=== PATIENT | male | born 1960 | race Caucasian/White ===

== ENCOUNTER 2020-03-24 12:31 | Emergency (ER) | payer MEDICARE, MEDICAID ==
[~2020-03-24] VITALS: Ht 175.3 cm; Wt 104.5 kg
[~2020-03-24 12:31] MED LIST: CLIN-26 PO; IBUP-1051 PO; NO HOME MEDS
[2020-03-24 12:47] VITALS: BP 120/94
[2020-03-24] MEDS ORDERED: HYDROcodone/acetaminophen 5mg/325mg tablet PO ONE (14:40)
[2020-03-24 15:48] LABS: CLARITY,URINE CLEAR (Clear); COLOR,URINE YELLOW (Yellow); GLUCOSE, URINE >=1000 mg/dl (Neg); KETONES,URINE 15 mg/dl (Neg); LEUKOCYTE ESTERASE ,URINE NEGATIVE (Neg); NITRITES, URINE NEGATIVE (Neg); OCCULT BLOOD,URINE NEGATIVE (Neg); PROTEIN,URINE NEGATIVE (Neg); UROBILINOGEN,URINE 0.2 E.U/dL (0.2-1.0)
[2020-03-24 15:52] LABS: UA COLLECTION TYPE CLN CATCH MIDSTREAM
[2020-03-24 15:53] LABS: BACTERIA,URINE NONE SEEN /HPF (Neg); MUCUS STRANDS NONE SEEN /LPF (Neg); RBC,URINE 0-2 /HPF (0-2); SQUAMOUS EPITHELIAL CELL,UR FEW /LPF (FEW); WBC,URINE NONE SEEN /HPF (0-4)
[2020-03-24] MEDS ORDERED: LEVO500T2 PO (16:01)
[2020-03-24] MEDS ORDERED: HYDR-3965 PO (16:04)
== END 2020-03-24 16:05 | disposition home or self-care (01) ==
LOC: ER 12:31
DX: N45.1 Epididymitis (principal); N50.3 Cyst of epididymis; N43.3 Hydrocele, unspecified; F17.200 Nicotine dependence, unspecified, uncomplicated; Z79.2 Long term (current) use of antibiotics; Z79.899 Other long term (current) drug therapy
CPT/HCPCS: 81001; 99284

== ENCOUNTER 2020-04-17 11:03 | Day surgery (SDC) | payer MEDICARE, MEDICAID ==
[~2020-04-17 11:03] MED LIST changes: +AMA1T PO; -CLIN-26 PO; +LACT1CAP26 PO; +LINA5TAB4 PO; +LISI-604 PO; +METF-950 PO; -NO HOME MEDS; +[UNRECOGNIZED DRUG - CODE] PO
[2020-04-17] MEDS ORDERED: LIDOcaine 2% 5ml jelly ONE (11:46)
== END 2020-04-17 12:30 | disposition home or self-care (01) ==
LOC: WOUND CARE 11:03
PROVIDERS: ATTEND Nurse Practitioner Family
DX: N49.2 Inflammatory disorders of scrotum (principal); L02.818 Cutaneous abscess of other sites; L98.492 Non-pressure chronic ulcer of skin of other sites with fat layer exposed; E11.65 Type 2 diabetes mellitus with hyperglycemia; I10 Essential (primary) hypertension; G80.9 Cerebral palsy, unspecified; B95.1 Streptococcus, group B, as the cause of diseases classified elsewhere; N43.3 Hydrocele, unspecified; N50.811 Right testicular pain; F17.210 Nicotine dependence, cigarettes, uncomplicated; Z79.2 Long term (current) use of antibiotics; Z79.899 Other long term (current) drug therapy; Z79.84 Long term (current) use of oral hypoglycemic drugs
CPT/HCPCS: 82948; 97597

== ENCOUNTER 2020-04-24 11:40 | Day surgery (SDC) | payer MEDICARE, MEDICAID ==
[~2020-04-24 11:40] MED LIST changes: -[UNRECOGNIZED DRUG - CODE] PO
[2020-04-24] MEDS ORDERED: LIDOcaine 2% 5ml jelly ONE (11:56)
== END 2020-04-24 12:46 | disposition home or self-care (01) ==
LOC: WOUND CARE 11:40
PROVIDERS: ATTEND Nurse Practitioner
DX: N49.2 Inflammatory disorders of scrotum (principal); T81.89XD Other complications of procedures, not elsewhere classified, subsequent encounter; L98.492 Non-pressure chronic ulcer of skin of other sites with fat layer exposed; E11.65 Type 2 diabetes mellitus with hyperglycemia; I10 Essential (primary) hypertension; G80.9 Cerebral palsy, unspecified; B95.1 Streptococcus, group B, as the cause of diseases classified elsewhere; N43.3 Hydrocele, unspecified; F17.210 Nicotine dependence, cigarettes, uncomplicated; Z79.899 Other long term (current) drug therapy; Z79.2 Long term (current) use of antibiotics; Y83.8 Other surgical procedures as the cause of abnormal reaction of the patient, or of later complication, without mention of misadventure at the time of the procedure
CPT/HCPCS: 36416; 82948; 97597

== ENCOUNTER 2020-05-02 08:20 | Day surgery (SDC) | payer MEDICARE, MEDICAID ==
[2020-05-02] MEDS ORDERED: LIDOcaine 2% 5ml jelly ONE (08:41)
== END 2020-05-02 09:15 | disposition home or self-care (01) ==
LOC: WOUND CARE 08:20
PROVIDERS: ATTEND Registered Nurse General Practice
DX: N49.2 Inflammatory disorders of scrotum (principal); T81.89XD Other complications of procedures, not elsewhere classified, subsequent encounter; L98.492 Non-pressure chronic ulcer of skin of other sites with fat layer exposed; E11.65 Type 2 diabetes mellitus with hyperglycemia; I10 Essential (primary) hypertension; G80.9 Cerebral palsy, unspecified; B95.1 Streptococcus, group B, as the cause of diseases classified elsewhere; N43.3 Hydrocele, unspecified; F17.210 Nicotine dependence, cigarettes, uncomplicated; Z79.899 Other long term (current) drug therapy; Z79.2 Long term (current) use of antibiotics; Y83.8 Other surgical procedures as the cause of abnormal reaction of the patient, or of later complication, without mention of misadventure at the time of the procedure
CPT/HCPCS: 36416; 82948; 97597

== ENCOUNTER 2022-07-12 00:35 | Emergency (ER) | payer MEDICARE, MEDICAID ==
[~2022-07-12] VITALS: Ht 177.8 cm; Wt 100.0 kg
[~2022-07-12 00:35] MED LIST changes: -AMA1T PO; -LISI-604 PO; +LISI5TAB22 PO; -METF-950 PO
[2022-07-12] MEDS ORDERED: TETanus/Pertussis (Acell)/Diphther VAC/PF (Tdap-Adult) 0.5ml syringe IMVAC ONE (01:30)
[2022-07-12] MEDS ORDERED: CEPH-585 PO (01:38)
[2022-07-12 01:59] VITALS: BP 119/76
== END 2022-07-12 02:02 | disposition home or self-care (01) ==
LOC: ER 00:36
DX: S81.801A Unspecified open wound, right lower leg, initial encounter (principal); Z98.890 Other specified postprocedural states; Z88.8 Allergy status to other drugs, medicaments and biological substances; Z79.2 Long term (current) use of antibiotics; Z79.899 Other long term (current) drug therapy; X58.XXXA Exposure to other specified factors, initial encounter; Y93.89 Activity, other specified; Y92.89 Other specified places as the place of occurrence of the external cause; Y99.8 Other external cause status
CPT/HCPCS: 82948; 90471; 90715; 99283; A6223; A6446